=== PATIENT | female | born 1950 | race Caucasian/White ===

== ENCOUNTER 2016-11-27 04:02 | Emergency (ER) | payer OTHER | END 2016-11-27 06:15 | disposition home or self-care (01) | LOC: ER 04:02 | DX: S82.852A Displaced trimalleolar fracture of left lower leg, initial encounter for closed fracture (principal); I10 Essential (primary) hypertension; Z95.1 Presence of aortocoronary bypass graft; W18.30XA Fall on same level, unspecified, initial encounter; Y92.009 Unspecified place in unspecified non-institutional (private) residence as the place of occurrence of the external cause | CPT/HCPCS: 96361; 96374; 96375; 96376; J2550 ==

== ENCOUNTER 2016-12-03 10:29 | Observation (INO) | payer OTHER ==
[~2016-12-03] VITALS: Ht 167.6 cm; Wt 65.8 kg
--- NOTE | 2016-12-03 18:20 | NUR ---
1500- PT ARRIVED TO ROOM 311 FROM OR. VITAL SIGNS OBTAINED, TEMP 94.6 ORAL. PT COVERED WITH WARM BLANKETS, AND HEAT TURNED ON. 1510- TEMP RECHECKED, 97.8 ORALLY. WILL CONT TO MONITOR.
--- NOTE | 2016-12-03 19:12 | NUR ---
1515- SCUDS APPLIED TO R LEG FOR DVT PROPHYLAXIS.
== END 2016-12-04 16:45 | disposition home or self-care (01) ==
LOC: SDC 10:29 → MED 14:48 → SDC 16:36 → MED 12-04 16:45
PROVIDERS: ADMIT Orthopaedic Surgery
DX: S82.852A Displaced trimalleolar fracture of left lower leg, initial encounter for closed fracture (principal); I25.10 Atherosclerotic heart disease of native coronary artery without angina pectoris; I25.2 Old myocardial infarction; Z83.3 Family history of diabetes mellitus; Z82.49 Family history of ischemic heart disease and other diseases of the circulatory system; Z79.82 Long term (current) use of aspirin; Z79.891 Long term (current) use of opiate analgesic; Z79.899 Other long term (current) drug therapy; Z95.1 Presence of aortocoronary bypass graft; W18.39XA Other fall on same level, initial encounter; Y93.01 Activity, walking, marching and hiking
CPT/HCPCS: 96365; 96366; 96375; 96376; G0378; J0360; J1885; J2704; J7040